=== PATIENT | female | born 1960 | race Hispanic/Latino ===

== ENCOUNTER 2022-08-14 14:53 | Outpatient (CLI) | payer OTHER | END 2022-08-14 14:54 | disposition home or self-care (01) | LOC: CSHMAMMO 14:53 | PROVIDERS: ATTEND Family Medicine | DX: Z12.31 Encounter for screening mammogram for malignant neoplasm of breast (principal); Z13.820 Encounter for screening for osteoporosis; Z78.0 Asymptomatic menopausal state; M81.0 Age-related osteoporosis without current pathological fracture; M85.851 Other specified disorders of bone density and structure, right thigh; M85.852 Other specified disorders of bone density and structure, left thigh; Z98.890 Other specified postprocedural states | CPT/HCPCS: 77063; 77067; 77080 ==

== ENCOUNTER 2023-12-03 12:40 | Outpatient (CLI) | payer OTHER | END 2023-12-03 12:41 | disposition home or self-care (01) | LOC: CSHMAMMO 12:40 | PROVIDERS: ATTEND Family Medicine | DX: Z12.31 Encounter for screening mammogram for malignant neoplasm of breast (principal); Z98.890 Other specified postprocedural states | CPT/HCPCS: 77063; 77067 ==

== ENCOUNTER 2024-05-15 15:07 | Outpatient (CLI) | payer OTHER | END 2024-05-15 15:08 | disposition home or self-care (01) | LOC: CSHRAD 15:07 | PROVIDERS: ATTEND Family Medicine | DX: S49.92XA Unspecified injury of left shoulder and upper arm, initial encounter (principal); S79.912A Unspecified injury of left hip, initial encounter ==